=== PATIENT | female | born 1995 | race Caucasian/White ===

== ENCOUNTER 2016-10-26 11:38 | Emergency (ER) | payer SELFPAY ==
[~2016-10-26] VITALS: Ht 162.6 cm; Wt 63.5 kg
[2016-10-26 12:03] LABS: *BILIRUBIN,URIN NEGATIVE (NEGATIVE); *BLOOD, URINE 2+ (NEGATIVE); *CLARITY,URINE CLOUDY (CLEAR); *COLOR,URINE YELLOW (YELLOW); *KETONES,URINE NEGATIVE (NEGATIVE); *PROTEIN,URINE TRACE (NEGATIVE); *UROBILINOGEN,URINE 0.2 E.U./dl (NORMAL); LEUKOCYTE ESTERASE ,URINE 3+ (NEGATIVE); NITRITE, URINE NEGATIVE (NEGATIVE); UGLUCOSE NEGATIVE (NEGATIVE)
[2016-10-26 12:04] LABS: *URINE HCG, QUAL NEGATIVE (NEGATIVE)
[2016-10-26 12:11] LABS: BACTERIA,URINE FEW /HPF (NONE SEEN); RBC,URINE 20-50 /HPF (0-3); SQUAMOUS EPITHELIAL CELL,UR MANY /HPF (NONE SEEN); WBC,URINE 80-100 /HPF (0-3)
[2016-10-26] MEDS ORDERED: SULFAMETH/TRIMETH 800/160 MG TABLET PO ONE (12:15)
[2016-10-26] MEDS ORDERED: PHENAZOPYRIDINE HCL 100 MG TABLET PO ONE (12:15)
--- NOTE | 2016-10-26 12:15 | NUR ---
DR GODINEZ MADE PATIENT AWARE OF TEST RESULTS
[2016-10-26] MEDS ORDERED: SULFAMETH/TRIMETH 800/160 MG TABLET ONE (12:29)
[2016-10-26] MEDS ORDERED: PHENAZOPYRIDINE HCL 100 MG TABLET ONE (12:29)
== END 2016-10-26 12:20 | disposition home or self-care (01) ==
LOC: ER 11:51
DX: N39.0 Urinary tract infection, site not specified (principal)
CPT/HCPCS: 81001; 84703; 99283; A4663